=== PATIENT | male | born 1945 | race Caucasian/White ===

== ENCOUNTER 2022-09-29 05:41 | Emergency (ER) | payer MEDICARE, OTHER ==
--- NOTE | 2022-09-29 06:09 | ED Physician Documentation ---
History of Present Illness - Stated complaint Stated Complaint: BEE BITE - Chief complaint Chief Complaint: Allergic Rx - History obtained from History obtained from: Patient - Additonal information Additional information: HPI from patient. 2 days ago, patient sustained multiple bee stings (multiple sites) while working on his yard at home. Over the ensuing few hours, his description is consistent w ith simple, focal reactions at the bee sting sites. However, by the next morning he developed significant swelling of the sting he sustained to the left side of his face. Since that time, the swelling of the face has gradually worsened. He denies dyspnea, lightheadedness, swelling of lips/tongue/throat.He has not had similar symptoms in the past although he is not certain he has ever been stung by a bee before. Review of Systems Constitutional: denies: Fever Respiratory: denies: Dyspnea, Cough, Wheezing Skin: reports: Bite / sting PD PAST MEDICAL HISTORY - Past Medical History Past Medical History: Yes Cardiovascular: Hypertension Respiratory: None Endocrine/Autoimmune: None GI: GERD : None HEENT: Glaucoma Psych: None Musculoskeletal: None Derm: Other - Past Surgical History Past Surgical History: Yes General: Colonoscopy Ortho: Hip replacement, Knee replacement, Arthroscopic surgery - Present Medications Home Medications: Ambulatory Orders Medication Instructions Recorded Confirmed Omeprazole [Prilosec] 20 mg PO DAILY 01/16/15 09/29/22 Timolol 0.5% Ophth Drops [Timoptic 1 drops EACHEYE DAILY 09/29/22 09/29/22 0.5% Ophth Drops] predniSONE [Deltasone] 40 mg PO DAILY 4 Days #8 tablet 09/29/22 - Allergies Allergies/Adverse Reactions: Allergies Allergy/AdvReac Type Severity Reaction Status Date / Time No Known Drug Allergies Allergy Verified 09/29/22 05:53 - Social History Does the pt smoke?: No Smoking Status: Never smoker Does the pt drink ETOH?: Yes Does the pt have substance abuse?: No - Immunizations Immunizations are current?: Yes - POLST Patient has POLST: No PD ED PE NORMAL - Vitals Vital signs reviewed: Yes - General General: Alert and oriented X 3, No acute distress, Well developed/nourished - HEENT HEENT: Moist mucous membranes, Pharynx benign, Other (no perio/intraoral edema) - Respiratory Respiratory: No respiratory distress, Clear bilaterally PD ED PE EXPANDED - HEENT HEENT: Other (right facial swelling and erythema which is predominantly infraorbital and over zygoma) - Derm SKin visual: 1 - swelling (with erythema) 2 - swelling (with faint erythema) 3 - swelling (with erythema) 4 - swelling (mild swelling, faint erythema) Results - Vitals Vitals: Oxygen O2 Source Room air PD Medical Decision Making - ED course Complexity details: considered differential, d/w patient ED course: Patient presents due to gradual onset, gradually worsening swelling and erythema at multiple sites due to bee stings. His chief concern is the left facial swelling , which is the most prominent swelling and erythema on exam (compared to other sites as noted on physical exam, above). All sites are carefully inspected for retained FB (stinger(s)), and no stingers are seen on exam. Despite obvious swelling, he is not in any distress (such as respiratory distress, painful distress; this is per patient as well as on my exam). He is given 25mg PO benadryl and 40mg PO prednisone. I am prescribing a short course of QD prednisone. I also instructed him to take OTC benadryl PRN per label instructions. Furthermore, I d/w patient that he can also take pepcid if the prednisone and benadryl do not provide adequate improvement. Departure - Departure Disposition: 01 Home, Self Care Clinical Impression: Allergy to bee sting Condition: Good Instructions: ED Bite Sting Insect Gen Allergic React Prescriptions: predniSONE [Deltasone] 40 mg PO DAILY 4 Days #8 tablet Comments: You were given a dose of Benadryl (antihistamine) and prednisone (steroid) in the emergency department this morning. I have electronically submitted a prescription for 4 more days of prednisone to the [facility] in [place]. You should take the next dose of the prednisone tomorrow morning (09/30). If you do not already have Benadryl at home, you should also purchase Benadryl and take the Benadryl as per the label instructions (25 to 50 mg by mouth every 6 hours as needed for your symptoms). If the steroid and the Benadryl do not result in symptom improvement by mid day today, you can also take Pepcid ([id number], follow label instructions). Forms: PCP List Discharge Date/Time: 09/29/22 07:06
[2022-09-29] MEDS ORDERED: predniSONE 20 MG TABLET PO STA (06:50)
[2022-09-29] MEDS ORDERED: diphenhydrAMINE 25 MG CAPSULE PO STA (06:50)
[2022-09-29 07:08] VITALS: BP 146/89
== END 2022-09-29 07:06 | disposition home or self-care (01) ==
LOC: ED 05:41
DX: T63.441A Toxic effect of venom of bees, accidental (unintentional), initial encounter (principal); Y92.007 Garden or yard of unspecified non-institutional (private) residence as the place of occurrence of the external cause; I10 Essential (primary) hypertension
CPT/HCPCS: 99282; 99283; A9270; J7512